=== PATIENT | male | born 2000 | race Caucasian/White ===

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

== ENCOUNTER 2022-01-16 01:18 | Emergency (ER) | payer BC, OTHER ==
[2022-01-16 02:00] VITALS: BP 121/84; PULSE 91; TEMP 98.2; BMI 29.3
[2022-01-16] MEDS ORDERED: DIPHTH,PERTUSS(ACELL),TET 0.5 ML DISP.SYRIN IM ONE ×2 (02:37→02:41)
== END 2022-01-16 03:24 | disposition home or self-care (01) ==
LOC: JER 01:18
PROC: 3E0234Z Introduction of Serum, Toxoid and Vaccine into Muscle, Percutaneous Approach (ICD-10-PCS; principal; 2022-01-16)
DX: S61.411A Laceration without foreign body of right hand, initial encounter (principal); W22.8XXA Striking against or struck by other objects, initial encounter; W25.XXXA Contact with sharp glass, initial encounter
CPT/HCPCS: 73130-TC-RT-FY; 90715; 99283-25

== ENCOUNTER 2022-10-25 09:22 | Emergency (ER) | payer OTHER, BC ==
[2022-10-25 09:33] VITALS: RESP 18; TEMP 98.2; BMI 29.3
[2022-10-25] MEDS ORDERED: ACETAMINOPHEN 500 MG TABLET (FP) PO ONE (10:33)
[2022-10-25] MEDS ORDERED: ACETAMINOPHEN 325 MG TABLET (FP) ONE (10:35)
[2022-10-25] MEDS ORDERED: KETOROLAC TROMETHAMINE 30 MG/1 ML VIAL IM ONE (12:31)
[2022-10-25] MEDS ORDERED: KETOROLAC TROMETHAMINE 30 MG/1 ML VIAL ONE (12:44)
[2022-10-25 12:57] VITALS: BP 115/64; PULSE 61
== END 2022-10-25 14:03 | disposition home or self-care (01) ==
LOC: JER 09:22
PROC: 3E0233Z Introduction of Anti-inflammatory into Muscle, Percutaneous Approach (ICD-10-PCS; principal; 2022-10-25)
DX: S09.90XA Unspecified injury of head, initial encounter (principal); R51.9 Headache, unspecified; M25.511 Pain in right shoulder; M25.552 Pain in left hip; V43.52XA Car driver injured in collision with other type car in traffic accident, initial encounter
CPT/HCPCS: 70450-TC; 73030-TC-RT-FY; 73502-TC-LT-FY; 99285-25